=== PATIENT | male | born 1990 | race Caucasian/White ===

== ENCOUNTER 2016-09-28 13:19 | Emergency (ER) | payer OTHER ==
[~2016-09-28] VITALS: Ht 175.3 cm; Wt 86.2 kg
[2016-09-28] MEDS ORDERED: KEFLEX500 MG PO (15:01)
[2016-09-28] MEDS ORDERED: IBUPROFEN 600600 M1 PO (15:01)
[2016-09-28] MEDS ORDERED: NORCO 5-325 TA1 EACH PO (15:01)
[2016-09-28 15:39] VITALS: BP 122/84
== END 2016-09-28 15:01 | disposition home or self-care (01) ==
LOC: ER 13:19
DX: M20.001 Unspecified deformity of right finger(s) (principal); S62.664A Nondisplaced fracture of distal phalanx of right ring finger, initial encounter for closed fracture; W24.0XXA Contact with lifting devices, not elsewhere classified, initial encounter; Y93.89 Activity, other specified; Y92.89 Other specified places as the place of occurrence of the external cause; Y99.8 Other external cause status